=== PATIENT | female | born 1935 | race Caucasian/White ===

== ENCOUNTER → 2025-01-04 | Outpatient (CLI) | payer MEDICARE, BC, SELFPAY ==
[2025-01-04 11:09] LABS: Collection Type, Urine Clean Catch
[2025-01-04 11:53] LABS: Basophils # (Auto) 0.1 Thou/mm3 (0.0-0.2); Basophils % (Auto) 1 % (0-2.5); Eosinophils # (Auto) 0.2 Thou/mm3 (0.0-0.5); Eosinophils % (Auto) 3 % (0-10); Hemoglobin 12.5 g/dL (12.0-16.0); Immature Granulocytes % (Auto) 0 % (0-0); Immature Granulocytes Auto 0.02 Thou/mm3 (0.00-0.00); Lymphocytes # (Auto) 1.6 Thou/mm3 (1.0-4.8); Lymphocytes % (Auto) 23 % (10-50); Mean Corpuscular HGB Conc 32.9 g/dl (31.0-37.0); Mean Corpuscular Hemoglobin 33.2 pg (25.0-35.0); Mean Corpuscular Volume 101 fL (80-100); Monocytes # (Auto) 0.5 Thou/mm3 (0.0-0.8); Monocytes % (Auto) 7 % (0-12); Neutrophils # (Auto) 4.6 Thou/mm3 (1.8-7.7); Neutrophils % (Auto) 66 % (37-80); Nucleated Red Blood Cell % 0 /100 WBC (0); Platelet Count 257 Thou/mm3 (140-440); RDW Standard Deviation 48.2 fL (36.4-46.3); Red Blood Count 3.76 Miln/mm3 (4.00-5.20); White Blood Count 6.9 Thou/mm3 (3.6-11.0)
[2025-01-04 12:08] LABS: Alanine Aminotransferase 18 U/L (10-49); Albumin, Serum 4.2 gm/dL (3.4-4.8); Albumin/Globulin Ratio 1.5 (1.2-2.2); Alkaline Phosphatase 92 U/L (46-116); Anion Gap 10 (7-16); Aspartate Amino Transferase 23 U/L (0-34); BUN/Creatinine Ratio 16 Ratio (12-20); Bilirubin,Total 0.5 mg/dL (0.3-1.2); Blood Urea Nitrogen 16 mg/dL (9-23); Calcium 9.1 mg/dL (8.3-10.6); Calcium (Corrected) 9.1 mg/dL (8.5-10.1); Carbon Dioxide 27.1 mMol/L (20.0-31.0); Cardiac Risk Estimate 2.5 RATIO (3.7-5.6); Chloride 107 mMol/L (98-107); Cholesterol 137 mg/dL (132-200); Globulin 2.8 gm/dL (2.3-3.5); Glucose 106 mg/dL (74-106); HDL Cholesterol 54 mg/dL (40-60); LDL Cholesterol,Calculated 59 mg/dL (0-130); Osmolality,Calculated 288 (275-295); Potassium 4.1 mMol/L (3.4-5.1); Sodium 144 mMol/L (136-145); Triglycerides 118 mg/dL (30-150); Uric Acid 6.3 mg/dL (3.1-7.8); eGFR 54 See Note
[2025-01-04 12:20] LABS: Vitamin B12 621 pg/mL (211-911); Vitamin D 25 Hydroxy Total 35.8 ng/mL (7.3-40.2)
[2025-01-04 12:42] LABS: Glucose Estimated Average 114 mg/dL (80-131); Hemoglobin A1C 5.6 % Hgb (4.8-6.0)
[2025-01-04 13:30] LABS: Bilirubin,Urine Negative (Negative); Blood,Urine Negative (Negative); Clarity,Urine Clear (Clear/Hazy); Color,Urine Lt-Yellow (Lt Yel-Yel); Glucose, Urine Negative (Negative); Ketones,Urine Negative (Negative); Leukocyte Esterase,Urine Positive (Negative); Nitrite,Urine Negative (Negative); PH,Urine 5.5 (5.0-7.0); Protein,Urine Negative (Neg - Trace); RBC,Urine 1 /hpf (0-3); Specific Gravity,Urine 1.018 (1.001-1.035); Squamous Epithelial Cell,Urine 3 /hpf (0-5); Urobilinogen,Urine Negative mg/dL (0.0-1.0); WBC,Urine 3 /hpf (0-5)
== END | disposition home or self-care (01) ==
PROVIDERS: PCP Internal Medicine; Referring Provider Internal Medicine; Visit Provider Internal Medicine
DX: E78.5 Hyperlipidemia, unspecified (principal); I10 Essential (primary) hypertension; E03.9 Hypothyroidism, unspecified; D51.9 Vitamin B12 deficiency anemia, unspecified; E55.9 Vitamin D deficiency, unspecified
CPT/HCPCS: 36415; 80053; 80061; 81001; 82306; 82607; 83036; 84443; 84550; 85025

== ENCOUNTER 2025-02-09 11:49 | Emergency (ER) | payer MEDICARE, BC, SELFPAY ==
[2025-02-09 11:57] VITALS: BP 148/62; PULSE 75; RESP 18; TEMP 36.6; O2SAT 95; BMI 33.3
--- NOTE | 2025-02-09 12:01 | XR_ITS ---
Examination: CT cervical spine without contrast 2-D sagittal reconstructions 2-D coronal reconstructions 3-D reconstructions. Exam date and time:February 09, 2025 at 12:10 PM INDICATIONS: Patient fell today with injury to the neck, neck pain CTDI:vol (mGy) 8.14 DLP: (mGycm) 167 Technique: Multiple 2 mm axial sections of the cervical spine have been obtained. The coronal and sagittal reconstructions have been obtained. 3-D reconstructions have been obtained. Low dose protocols were performed. One or more of the following dose reduction techniques were used; automated exposure control, adjustment of the mA and/or KV according to patient size, use of iterative reconstruction technique. Findings: Axial sections demonstrate intact base of the skull. C1 exhibit satisfactory relationship to the odontoid. No acute cervical vertebral body fracture seen. Alignment posterior spinous processes satisfactory. Impression: No acute cervical fracture.
--- NOTE | 2025-02-09 12:01 | EKG_ITS ---
[facility] Test Date: 2025-02-09 Pat Name: IVETT BREWER Department: Room: - Gender: Female Filler Sifter Machine: : [id number] Requested By: Francesco Hutton Order Number: [id number] Reading MD: Francesco Hutton Measurements Intervals [place] Rate: 66 P: 36 OR: 157 QRS: -22 QRSD: 161 T: 133 QT: 425 QTc: 447 Interpretive Statements SINUS RHYTHM LEFT BUNDLE BRANCH BLOCK [120+ ms QRS DURATION, 80+ ms Q/S IN V1/V2, 85+ ms R IN I/aVL/V5/V6] Compared to ECG 01/07/2023 15:26:32 No significant changes /store/S0/[id number].pdf
--- NOTE | 2025-02-09 12:01 | XR_ITS ---
Examination: CT brain head without contrast. 2-D sagittal coronal reconstructions Date and time of exam:February 09, 2025 1210 hours Comparison January 07, 2023 INDICATIONS: Ground-level fall today with injury to the head, head pain CTDI: vol (mGy):46.9 DLP: (mGycm):939 Technique: Multiple CT axial sections of the brain have been obtained, 5 mm slice thickness. Contrast has not been administered. 2-D sagittal, coronal reconstructions have been obtained Low dose protocols were performed. One or more of the following dose reduction techniques were used; automated exposure control, adjustment of the mA and/or KV according to patient size, use of iterative reconstruction technique. Findings: No significant ventricular enlargement. Intra-axial or extra-axial hemorrhage density is not seen. No mass effect or midline shift Basal cisterns are not remarkable. Fourth ventricle is midline. Cranial vault intact. Impression: Negative for acute hemorrhage, mass effect or midline shift
--- NOTE | 2025-02-09 12:03 | PD.EDFALL ---
ED Fall Injury RME/HPI General Chief Complaint: Fall Stated Complaint: FALL HITTING R) JEHOVAH'S WITNESS, LAC Time Seen by Provider: 02/09/25 12:00 Source: patient Arrival date/time: 02/09/25 11:49 Mode of arrival: ambulatory Limitations: no limitations RME / HPI RME / HPI Narrative: 59-year-old female who states she has a chronically unbalanced gait and uses a walker for assistance. She was threshold of a doorway just prior to arrival when she had a mechanical fall and struck her right confucianism. She has a skin injury and bleeding. She denies any loss of conscious, nausea, vomiting. She has no vision changes. She denies any distal paresthesias or weakness. She has no other acute complaints. Related Data Home Medications ?Medication ?Instructions ?Recorded ?Confirmed aspirin 81 mg chewable tablet 81 mg PO QDAY ##0 12/13/16 01/08/23 lisinopril 20 mg tablet 40 mg PO BID #0 tabs 12/13/16 01/07/23 levothyroxine 25 mcg tablet 25 mcg PO QDAY 11/27/17 01/07/23 nitroglycerin 0.4 mg sublingual 0.4 mg buccal Q5MIN PRN Chest Pain 02/01/18 01/08/23 tablet amlodipine 5 mg tablet 5 mg PO BID 01/16/19 01/07/23 sertraline 50 mg tablet 100 mg PO HS 01/16/19 01/07/23 buspirone 15 mg tablet 15 mg PO QDAY 11/20/21 01/07/23 Previous Rx's ?Medication ?Instructions ?Recorded ticagrelor 90 mg tablet (Brilinta) 90 mg PO BID #60 tabs 11/20/21 atorvastatin 10 mg tablet 80 mg (8 x 10 mg) PO DAILY #30 tabs 01/08/23 Allergies Allergy/AdvReac Type Severity Reaction Status Date / Time Penicillins Allergy Mild Hives Verified 02/09/25 11:53 Sulfa (Sulfonamide Allergy Mild Hives Verified 02/09/25 11:53 Antibiotics) ciprofloxacin AdvReac Intermediate stomach Verified 02/09/25 11:53 upset and diarrhea Review of Systems Review of Systems Systems Reviewed: All systems reviewed, normal except as documented ED Exam General Limitations: Present no limitations General appearance: Present alert and in no apparent distress Head Head exam: Present atraumatic and other (No scalp depression. No hematotympanum. No Craft sign. There is mild purple discoloration and an open wound lateral to the right eye.) Eye Eye exam: Present normal appearance, PERRL and EOMI ENT ENT exam: Present normal exam, normal oropharynx and mucous membranes moist Neck Neck exam: Present normal inspection, full ROM and trachea midline Chest Chest inspection: Present normal inspection and symmetric chest wall rise Respiratory Respiratory exam: Present normal lung sounds bilaterally Cardiovascular Cardiovascular exam: Present regular rate, normal rhythm and normal heart sounds Abdominal Exam Abdominal exam: Present soft and normal bowel sounds Extremities Exam Extremities exam: Present normal inspection and full ROM Back Exam Back exam: Present normal inspection and full ROM Neurological Exam Neurological exam: Present alert, oriented X3 and CN II-XII intact Psychiatric Psychiatric exam: Present normal affect and normal mood Skin Skin exam: Present warm, dry, intact and normal color Course Quality Measures none Orders Category Date Time Status EKG (ED ONLY) *Do not use* NOW Care 02/09/25 12:[address] cervical spine wo con Stat Exams 02/09/25 12:[address] head/brain wo con Stat Exams 02/09/25 12:01 Completed EKG (ED Only) Stat Exams 02/09/25 12:01 Draft CBC Stat Lab 02/09/25 12:18 Completed CMP [Comprehensive Metabolic Panel] Stat Lab 02/09/25 12:18 Completed PT [Prothrombin Time with INR] Stat Lab 02/09/25 12:18 Completed Lidocaine 1% 20 ml [Xylocaine 1% 20 ML] Med 02/09/25 14:37 Discontinued 10 ml INFL X1 ONE Vital Signs Vital signs: Vital Signs Temperature 98 F 02/09/25 11:57 Pulse Rate 75 02/09/25 11:57 Respiratory Rate 18 02/09/25 11:57 Blood Pressure 148/62 H 02/09/25 11:57 Pulse Oximetry (%) 95 02/09/25 11:57 Oxygen Delivery Method Room Air 02/09/25 11:57 Procedures -ED Laceration There is a 2 cm laceration lateral to the right eye. This was infiltrated with 0.5 cc of 1% lidocaine. Wound was approximated with 2, 6-0, nylon sut: Site: face Size (cm): 2 Description: linear Depth: simple, single layer Local Anesthetic: lidocaine 1% Amount of anesthesia used (mL): 0.5 Pre-repair: wound explored Skin layer closed with: nylon Suture size (cm): 6-0 Number of sutures: 2 Fall MDM Narrative MDM Narrative:: 89-year-old female who arrived to the ER after she had a mechanical fall and struck her right side of her head. She denies any loss of conscious, nausea, or vomiting. She has no neck or back injury. Patient initially eval by me as she anterior the waiting room area. A neuroassessment was performed and appropriate tests were ordered at that time. Patient was brought back to a room where her vital signs were assessed, found to be reassuring, and patient was triaged into an appropriate room. Reviewed the patient's workup which is reassuring. Appropriate imaging test including CT of the head and neck were obtained reviewed by me, and then later radiology. There is no evidence of any acute fracture or intracranial pathology. Patient's daughter arrived at a later time. Patient and her daughter vocalized discontent with the service time in our emergency room. This was relayed multiple times to various staff including techs and nursing staff. I did spend significant mount of time de-escalating the situation when I performed suture repair. Total time spent in the emergency room was less than 3 hours from time of check-in to when her discharge was initiated. Patient was advised to follow-up with her primary doctor in 5 to 6 days for wound recheck and suture removal. Patient was invited to return anytime for any neurologic changes or any concerns regarding wound infection. Patient data External records reviewed:: Other (specify) Clinical information provided by:: patient Social determinants that could affect healthcare access:: none Patient has the following chronic illnesses:: Hypertension hypothyroidism How is presenting disease/condition affected by chronic disease/condition?: exacerbated by Evaluation data The following diagnostics were reviewed and interpreted by me:: lab results (Unremarkable for any acute changes), radiology exam(s) (No acute intracranial pathology, no osseous injury) and EKG tracing(s) (EKG obtained today at 12:23 PM reveals normal sinus rhythm at 66 bpm. Left bundle branch present, there are no ST changes or dynamic T waves.) Lab and/or radiology exams considered but not ordered:: n/a Interpretation Summary: No leukocytosis or significant anemia. Cardiac workup was not remarkable. CT of the head and neck revealed no acute pathology Medications / Prescriptions Medications or Prescriptions considered but not ordered:: n/a Medication administrations:: Medication Administration History Discontinued Medications Lidocaine HCl (Lidocaine Hcl 1% 20 Ml Vial) 10 ml INFL X1 ONE Stop: 02/09/25 14:38 Last Admin: 02/09/25 14:52 Dose: 10 ml Documented By: ALICE Comments: USED BY PROVIDER see above Consultations Consultation(s) initiated? (list below): No Diagnosis Fall Differential Diagnosis: syncope and compression fracture Most likely diagnosis given after review of the tests above:: Facial laceration Admission Indicated Admission indicated?: not indicated Admission Request Was there a request for admission?: No Disposition Plan Disposition Plan: Discharge Discharge Attestation Discharge Attestation: The patient and all family members were given an opportunity to ask questions and understood the discharge instructions. Discharge instructions specifically effects, indications for sooner follow up or return to the emergency department, and the expected course of current diagnosis. Patient condition: Stable Discharge Plan Plan Patient Disposition: Home w/HOME HEALTH Patient condition on transfer: Stable Prescriptions/Referrals Prescriptions/Med Rec: No Action lisinopril 20 MG tablet 40 mg PO BID Qty: 0 aspirin 81 MG tablet,chewable 81 mg PO QDAY Qty: 0 buspirone 15 mg Tablet 15 mg PO QDAY Brilinta 90 mg Tablet 90 mg PO BID Qty: 60 0RF levothyroxine 25 mcg Tablet 25 mcg PO QDAY nitroglycerin 0.4 mg Tablet, Sublingual 0.4 mg buccal Q5MIN PRN (Reason: Chest Pain) amlodipine 5 mg Tablet 5 mg PO BID sertraline 50 mg Tablet 100 mg PO HS atorvastatin 10 mg Tablet 80 mg PO DAILY Qty: 30 0RF Referrals: Veronica Decker MD [Primary Care Provider] - In 1 week Problem List Clinical Impression: Facial laceration Patient/Caregiver Discharge Instructions Education Materials: ED Laceration, Chin, Suture or Tape Additional Instructions: - Use Tylenol for comfort. - Continue wound care at home. - Please follow-up with your clinic in 5 to 6 days for wound recheck and to consider suture removal. - Return to the emergency room at anytime for any emergent concerns including signs of infection or any neurologic changes. Print Language: Icelandic Stand Alone Forms: Nora Award Info., Patient Portal Info Letter
[2025-02-09 12:42] LABS: Basophils # (Auto) 0.1 Thou/mm3 (0.0-0.2); Basophils % (Auto) 1 % (0-2.5); Eosinophils # (Auto) 0.2 Thou/mm3 (0.0-0.5); Eosinophils % (Auto) 2 % (0-10); Hematocrit 35.8 % (36.0-46.0); Hemoglobin 12.1 g/dL (12.0-16.0); Immature Granulocytes % (Auto) 0 % (0-0); Immature Granulocytes Auto 0.01 Thou/mm3 (0.00-0.00); Lymphocytes # (Auto) 1.7 Thou/mm3 (1.0-4.8); Lymphocytes % (Auto) 22 % (10-50); Mean Corpuscular HGB Conc 33.8 g/dl (31.0-37.0); Mean Corpuscular Hemoglobin 33.2 pg (25.0-35.0); Mean Corpuscular Volume 98 fL (80-100); Monocytes # (Auto) 0.6 Thou/mm3 (0.0-0.8); Monocytes % (Auto) 8 % (0-12); Neutrophils # (Auto) 5.1 Thou/mm3 (1.8-7.7); Neutrophils % (Auto) 68 % (37-80); Nucleated Red Blood Cell % 0 /100 WBC (0); Platelet Count 240 Thou/mm3 (140-440); RDW Standard Deviation 46.8 fL (36.4-46.3); Red Blood Count 3.64 Miln/mm3 (4.00-5.20); White Blood Count 7.6 Thou/mm3 (3.6-11.0)
[2025-02-09 13:00] LABS: Prothrombin Time 10.7 Seconds (9.0-12.2)
[2025-02-09 13:03] LABS: Alanine Aminotransferase 17 U/L (10-49); Albumin, Serum 4.3 gm/dL (3.4-4.8); Albumin/Globulin Ratio 1.7 (1.2-2.2); Alkaline Phosphatase 81 U/L (46-116); Anion Gap 11 (7-16); Aspartate Amino Transferase 26 U/L (0-34); BUN/Creatinine Ratio 13 Ratio (12-20); Bilirubin,Total 0.6 mg/dL (0.3-1.2); Blood Urea Nitrogen 16 mg/dL (9-23); Calcium 9.3 mg/dL (8.3-10.6); Calcium (Corrected) 9.3 mg/dL (8.5-10.1); Carbon Dioxide 22.4 mMol/L (20.0-31.0); Chloride 108 mMol/L (98-107); Creatinine (Component) 1.2 mg/dL (0.6-1.3); Estimated Creatinine Clearance 28.6 mL/min (>60); Globulin 2.6 gm/dL (2.3-3.5); Glucose 106 mg/dL (74-106); Osmolality,Calculated 282 (275-295); Potassium 4.2 mMol/L (3.4-5.1); Sodium 141 mMol/L (136-145); Total Protein 6.9 gm/dL (5.7-8.2); eGFR 44 See Note
[2025-02-09] MEDS: LIDOCAINE HCL 1% 20 ML VIAL 10 ML INFL (14:52)
[2025-02-09 14:56] VITALS: BP 120/68; PULSE 77; RESP 18; TEMP 36.6; O2SAT 97
== END 2025-02-09 14:57 | disposition home health service (06) ==
PROVIDERS: Physician Assistant Medical; Emergency Provider Family Medicine; PCP Internal Medicine
DX: S01.81XA Laceration without foreign body of other part of head, initial encounter (principal); W18.30XA Fall on same level, unspecified, initial encounter; S19.9XXA Unspecified injury of neck, initial encounter; I44.7 Left bundle-branch block, unspecified
CPT/HCPCS: 12011; 36415; 70450; 72125; 80053; 85025; 85610; 93005; 99284; J3490

== ENCOUNTER 2025-06-27 17:37 | Emergency (ER) | payer MEDICARE, BC, SELFPAY ==
[2025-06-27 17:41] VITALS: BP 176/64; PULSE 62; PULSE 63; RESP 18; TEMP 36.6; O2SAT 96; O2SAT 99
[2025-06-27 17:45] VITALS: BMI 55.3
--- NOTE | 2025-06-27 18:24 | XR_ITS ---
Examination: CT brain head without contrast. 2-D sagittal coronal reconstructions Date and time of exam: June 27, 2025, 1909 hours, comparison February 09, 2025 INDICATIONS: Patient fell yesterday with injury to the head, head pain CTDI: vol (mGy): 50.4 DLP: (mGycm): 953 Technique: Multiple CT axial sections of the brain have been obtained, 5 mm slice thickness. Contrast has not been administered. 2-D sagittal, coronal reconstructions have been obtained Low dose protocols were performed. One or more of the following dose reduction techniques were used; automated exposure control, adjustment of the mA and/or KV according to patient size, use of iterative reconstruction technique. Findings: No significant ventricular enlargement. Mild frontal scalp swelling Intra-axial or extra-axial hemorrhage density is not seen. No mass effect or midline shift Basal cisterns are not remarkable. Fourth ventricle is midline. Cranial vault intact. Impression: Negative for acute hemorrhage, mass effect or midline shift
--- NOTE | 2025-06-27 18:26 | PD.EDADULT ---
ED General RME/HPI General Chief complaint: Altered Mental Status Stated complaint: AMS Time Seen by Provider: 06/27/25 18:18 Arrival date/time: 06/27/25 17:37 CC: Reported increased confusion HPI patient presents to the ER via EMS report stable vital signs EMS were contacted by the daughter who states this patient has increased confusion. The patient is awake alert oriented times to person and place and admits that she is mildly confused but not any more than she usually is. Patient denies fever chills chest pain shortness of breath or difficulty breathing no other complaints. Related Data Home Medications ?Medication ?Instructions ?Recorded ?Confirmed aspirin 81 mg chewable tablet 81 mg PO QDAY ##0 12/13/16 01/08/23 lisinopril 20 mg tablet 40 mg PO BID #0 tabs 12/13/16 01/07/23 levothyroxine 25 mcg tablet 25 mcg PO QDAY 11/27/17 01/07/23 nitroglycerin 0.4 mg sublingual 0.4 mg buccal Q5MIN PRN Chest Pain 02/01/18 01/08/23 tablet amlodipine 5 mg tablet 5 mg PO BID 01/16/19 01/07/23 sertraline 50 mg tablet 100 mg PO HS 01/16/19 01/07/23 buspirone 15 mg tablet 15 mg PO QDAY 11/20/21 01/07/23 Previous Rx's ?Medication ?Instructions ?Recorded ticagrelor 90 mg tablet (Brilinta) 90 mg PO BID #60 tabs 11/20/21 atorvastatin 10 mg tablet 80 mg (8 x 10 mg) PO DAILY #30 tabs 01/08/23 Allergies Allergy/AdvReac Type Severity Reaction Status Date / Time Penicillins Allergy Mild Hives Verified 02/09/25 11:53 Sulfa (Sulfonamide Allergy Mild Hives Verified 02/09/25 11:53 Antibiotics) ciprofloxacin AdvReac Intermediate stomach Verified 02/09/25 11:53 upset and diarrhea Review of Systems Review of Systems Narrative Review of Systems: GEN: No fever, no chills, no weight loss EYES: No discharge, no visual changes, no pain HEENT: No ear pain, no congestion, no sore throat PULM: No shortness of breath, no cough, no congestion CV: No chest pain, no dyspnea on exertion, no palpitations GI: No nausea, no vomiting, no diarrhea, no pain, no constipation : No frequency, no urgency, no dysuria MUSC/SKEL: No joint pain, no back pain SKIN: No rash PSYCH: No hallucinations, no depression HEME/LYMPH: No easy bleeding or bruising tendencies NEURO: No weakness, no headache Past Medical History Past Medical History NEUROLOGIC: Positive Dementia; Negative Neurological Disorders or Seizures CARDIAC: Positive Cardiac Disorders, Myocardial Infarction, Heart Murmur, Coronary Artery Disease, Hypercholesterolemia, Valvular Heart Disease and Hypertension; Negative Congestive Heart Failure RESPIRATORY: Positive Bronchitis and Pneumonia; Negative Chronic Obstructive Pulmonary Disease (COPD) or Asthma GASTROINTESTINAL: Positive Gastrointestinal Disorders, Hiatal Hernia and Hemorrhoids; Negative Gastrointestinal Bleed GENITOURINARY: Negative Genitourinary Disorders or Renal Disease REPRODUCTIVE: Positive Previous Pregnancies MUSCULOSKELETAL: Positive Musculoskeletal Disorders, Arthritis, Osteoporosis, Degenerative Disk Disease and Carpal Tunnel Syndrome ENT: Positive Cataracts ENDOCRINE: Positive Endocrine Disorders and Hypothyroidism; Negative Diabetes Mellitus Type 1 or Diabetes Mellitus Type 2 HEMATOLOGIC: Negative Blood Disorders or Sickle Cell Disease PSYCHO/SOCIAL: Positive Depression and Anxiety OTHER HISTORY: Positive Hospitalization, Chicken Pox, Measles, Mumps and Rubella (Swedish Measles); Negative Autoimmune Disease, Blood Transfusions, Blood Transfusion Reaction or Anesthesia Reactions Family History FAMILY HISTORY: Positive Family Respiratory Disorders and Family Cardiac Disorders; Negative Family Cancer, Family Surgery or Family Anesthesia Reaction Surgical History SURGICAL: Positive Cardiac Surgery, Valve Replacement, Coronary Stent, Cardiac Catheterization, Angiogram, Ear Surgery, Abdominal Surgery and Tubal Ligation Social History SMOKING STATUS: Former smoker ED Exam Narrative Physical exam: [General: Frail deconditioned but not in any acute distress Head normocephalic large laceration repaired to the right forehead. Bilateral forehead ecchymosis and very stages of resolution. HEENT: Eyes: Pupils are PERRLA EOMs are intact mouth pink moist membranes uvula is midline swallow symmetrical all the subsystems of HEENT are within acceptable limits Neck is supple nontender Chest equal chest rise nontender to palpation Respiratory: Clear to auscultation no wheezes crackles or rubs CV: Rate rhythm is regular no murmurs rubs or clicks Abdomen is soft nontender no masses positive bowel sounds all 4 quadrants Back: No CVA tenderness no spinous process tenderness from cervical spine thoracic and lumbar spine Skin: Skin tears and abrasions to both arms, laceration to the right forehead. Otherwise skin is intact no petechiae rash induration ulceration or crepitus Extremities: Moving all extremity against resistance cap refill less than 2 seconds neurosensory intact Neuro: Awake alert oriented x3 Glascow coma 15 no focal deficits] Course Course Course Narrative: Reassessment of this patient at 2029, the patient has no increased confusion at this time there is no acute finding requires emergent or immediate intervention. Patient will be discharged home. Quality Measures none Orders Category Date Time Status EKG (ED ONLY) *Do not use* NOW Care 06/27/25 18:[address] head/brain wo con Stat Exams 06/27/25 18:24 Completed EKG (ED Only) Stat Exams 06/27/25 18:28 Draft CBC Stat Lab 06/27/25 18:55 Completed CMP [Comprehensive Metabolic Panel] Stat Lab 06/27/25 18:55 Completed Drug Screen,Urine Stat Lab 06/27/25 19:34 Completed Free T4 (Free Thyroxine) Stat Lab 06/27/25 18:55 Completed TSH [Thyroid Stimulating Hormone] Stat Lab 06/27/25 18:55 Completed Urinalysis Stat Lab 06/27/25 19:34 Completed Vital Signs Vital signs: Vital Signs Temperature 97.9 F 06/27/25 17:41 Pulse Rate 62 06/27/25 17:41 Respiratory Rate 18 06/27/25 17:41 Blood Pressure 176/64 H 06/27/25 17:41 Pulse Oximetry (%) 96 06/27/25 17:41 Oxygen Delivery Method Room Air 06/27/25 17:41 Discharge Plan Plan Patient Disposition: HOME (Self Care) Patient condition on transfer: Stable Prescriptions/Referrals Prescriptions/Med Rec: No Action lisinopril 20 MG tablet 40 mg PO BID Qty: 0 aspirin 81 MG tablet,chewable 81 mg PO QDAY Qty: 0 buspirone 15 mg Tablet 15 mg PO QDAY Brilinta 90 mg Tablet 90 mg PO BID Qty: 60 0RF levothyroxine 25 mcg Tablet 25 mcg PO QDAY nitroglycerin 0.4 mg Tablet, Sublingual 0.4 mg buccal Q5MIN PRN (Reason: Chest Pain) amlodipine 5 mg Tablet 5 mg PO BID sertraline 50 mg Tablet 100 mg PO HS atorvastatin 10 mg Tablet 80 mg PO DAILY Qty: 30 0RF Referrals: Veronica Decker MD [Primary Care Provider, Nephrology] - In 1 week Problem List Clinical Impression: Confusion Patient/Caregiver Discharge Instructions Other Activity Instructions:: There is no acute findings physiologically that indicate any infection or abnormality otherwise. Patient is to follow-up with primary care provider for further workup. Education Materials: ED Confusion Print Language: Hungarian Stand Alone Forms: Nora Award Info., Patient Portal Info Letter PA/WOUND CARE CENTER CONSULTANT Supervising Physician PA/WOUND CARE CENTER CONSULTANT Supervising Physician: Blayne BORJA Clinical Information Provided by: patient and EMS Medical Records reviewed [facility] and EMS Meds/Rx considered, not ordered None Labs/Rad/Tests considered, not ordered None Chronic Illness/Social Conditions Explain: CVA hypertension hyperlipidemia EKG Interpretation EKG #1: EKG Interpretation: EKG performed at 1834 shows a ventricular rate of 5 8 TX interval 167 QRS of 168 QTc shows 433 this is sinus bradycardia with a left bundle branch block. When compared to the EKG of February 09, 2025 there are no significant changes. Labs Labs: interpreted by me
--- NOTE | 2025-06-27 18:28 | EKG_ITS ---
[facility] Test Date: 2025-06-27 Pat Name: IVETT BREWER Department: Room: - Gender: Female Client Success Manager: : [id number] Requested By: Blayne Grady Order Number: [id number] Reading MD: Blayne Grady Measurements Intervals [place] Rate: 58 P: 45 [place]: 167 QRS: -20 QRSD: 168 T: 142 QT: 447 QTc: 440 Interpretive Statements SINUS BRADYCARDIA LEFT BUNDLE BRANCH BLOCK [120+ ms QRS DURATION, 80+ ms Q/S IN V1/V2, 85+ ms R IN I/aVL/V5/V6] Compared to ECG 02/09/2025 12:23:02 Sinus rhythm no longer present /store/S0/[id number]
[2025-06-27 19:08] LABS: Basophils # (Auto) 0.0 Thou/mm3 (0.0-0.2); Basophils % (Auto) 1 % (0-2.5); Eosinophils # (Auto) 0.1 Thou/mm3 (0.0-0.5); Eosinophils % (Auto) 2 % (0-10); Hematocrit 36.0 % (36.0-46.0); Hemoglobin 11.8 g/dL (12.0-16.0); Immature Granulocytes Auto 0.02 Thou/mm3 (0.00-0.00); Lymphocytes # (Auto) 1.8 Thou/mm3 (1.0-4.8); Lymphocytes % (Auto) 26 % (10-50); Mean Corpuscular HGB Conc 32.8 g/dl (31.0-37.0); Mean Corpuscular Hemoglobin 33.5 pg (25.0-35.0); Mean Corpuscular Volume 102 fL (80-100); Monocytes # (Auto) 0.6 Thou/mm3 (0.0-0.8); Monocytes % (Auto) 9 % (0-12); Neutrophils # (Auto) 4.4 Thou/mm3 (1.8-7.7); Neutrophils % (Auto) 62 % (37-80); Nucleated Red Blood Cell # 0.00 Thou/mm3 (0.00-0.00); Nucleated Red Blood Cell % 0 /100 WBC (0); Platelet Count 243 Thou/mm3 (140-440); RDW Standard Deviation 47.0 fL (36.4-46.3); Red Blood Count 3.52 Miln/mm3 (4.00-5.20); White Blood Count 7.0 Thou/mm3 (3.6-11.0)
[2025-06-27 19:26] LABS: Alanine Aminotransferase 18 U/L (10-49); Albumin, Serum 4.4 gm/dL (3.4-4.8); Albumin/Globulin Ratio 1.8 (1.2-2.2); Alkaline Phosphatase 83 U/L (46-116); Anion Gap 9 (7-16); Aspartate Amino Transferase 28 U/L (0-34); BUN/Creatinine Ratio 24 Ratio (12-20); Bilirubin,Total 0.4 mg/dL (0.3-1.2); Blood Urea Nitrogen 26 mg/dL (9-23); Calcium 9.9 mg/dL (8.3-10.6); Calcium (Corrected) 9.9 mg/dL (8.5-10.1); Carbon Dioxide 26.8 mMol/L (20.0-31.0); Chloride 106 mMol/L (98-107); Creatinine (Component) 1.1 mg/dL (0.6-1.3); Estimated Creatinine Clearance 47.4 mL/min (>60); Globulin 2.5 gm/dL (2.3-3.5); Glucose 85 mg/dL (74-106); Osmolality,Calculated 286 (275-295); Potassium 4.0 mMol/L (3.4-5.1); Sodium 142 mMol/L (136-145); Total Protein 6.9 gm/dL (5.7-8.2); eGFR 48 See Note
[2025-06-27 19:38] LABS: Collection Type, Urine Clean Catch
[2025-06-27 19:47] LABS: Bilirubin,Urine Negative (Negative); Blood,Urine Negative (Negative); Clarity,Urine Clear (Clear/Hazy); Color,Urine Lt-Yellow (Lt Yel-Yel); Glucose, Urine Negative (Negative); Ketones,Urine Negative (Negative); Leukocyte Esterase,Urine Positive (Negative); Nitrite,Urine Negative (Negative); PH,Urine 6.0 (5.0-7.0); Protein,Urine Negative (Neg - Trace); RBC,Urine 2 /hpf (0-3); Specific Gravity,Urine 1.012 (1.001-1.035); Squamous Epithelial Cell,Urine 7 /hpf (0-5); Urobilinogen,Urine Negative mg/dL (0.0-1.0); WBC,Urine 25 /hpf (0-5)
[2025-06-27 19:51] VITALS: BP 169/95; PULSE 65; RESP 19; TEMP 37; O2SAT 97
[2025-06-27 19:53] LABS: Amphetamine/Methamp Scrn,U Negative (Negative); Barbiturate Screen,Urine Negative (Negative); Benzodiazepines Screen,Urine Negative (Negative); Benzoylecgonine Screen, Ur Negative (Negative); Fentanyl Screen,Urine Negative (Negative); Opiate Screen,Urine Negative (Negative); THC Screen,Urine Negative (Negative)
[2025-06-27 20:29] LABS: Free T4 (Free Thyroxine) 1.16 ng/dL (0.89-1.76); Thyroid Stimulating Hormone 1.12 uIU/mL (0.55-4.78)
--- NOTE | 2025-06-27 20:44 | PC.NURSE ---
PT DAUGHTER STATED SHE HAS HER BROTHER COMING TO PICK PT UP FROM [place], CHARGE NURSE OK WITH PRODUCTION SUPERVISOR OFF SHIFT
[2025-06-27 21:47] VITALS: BP 156/88; PULSE 65; RESP 16; TEMP 36.9; O2SAT 95
== END 2025-06-27 21:49 | disposition home or self-care (01) ==
PROVIDERS: Registered Nurse General Practice; Emergency Provider Emergency Medicine; PCP Internal Medicine
DX: R41.0 Disorientation, unspecified (principal); E78.5 Hyperlipidemia, unspecified; I10 Essential (primary) hypertension; I44.7 Left bundle-branch block, unspecified; Z95.5 Presence of coronary angioplasty implant and graft
CPT/HCPCS: 36415; 70450; 80053; 80307; 81001; 84439; 84443; 84481; 85025; 93005; 99283

== ENCOUNTER 2025-07-20 06:02 | Emergency (ER) | payer MEDICARE, BC, SELFPAY ==
[2025-07-20 06:16] VITALS: BP 178/63; PULSE 64; RESP 25; TEMP 36.8; O2SAT 95
--- NOTE | 2025-07-20 06:18 | XR_ITS ---
Examination: CT cervical spine without contrast 2-D sagittal reconstructions 2-D coronal reconstructions 3-D reconstructions. Exam date and time: July 20, 2025, 0641 hours, comparison February 09, 2025 INDICATIONS: Patient fell today with injury to the neck, neck pain CTDI:vol (mGy) 14.8 DLP: (mGycm) 306 Technique: Multiple 2 mm axial sections of the cervical spine have been obtained. The coronal and sagittal reconstructions have been obtained. 3-D reconstructions have been obtained. Low dose protocols were performed. One or more of the following dose reduction techniques were used; automated exposure control, adjustment of the mA and/or KV according to patient size, use of iterative reconstruction technique. Findings: Axial sections demonstrate intact base of the skull. C1 exhibit satisfactory relationship to the odontoid. No acute cervical vertebral body fracture seen. Alignment posterior spinous processes satisfactory. Advanced degenerative disc disease C5-C6 C6-C7 Impression: No acute cervical fracture. Significant soft tissue carotid calcification, consider elective correlation with carotid Doppler sonography follow-up
--- NOTE | 2025-07-20 06:20 | XR_ITS ---
EXAMINATION: AP pelvis single view TECHNIQUE: AP portable supine pelvis single view Date and time: July 20, 2025, 0643 hours INDICATIONS: Patient fell today with injury to the pelvis, pelvic pain. FINDINGS: Severe osteopenia No acute fracture or dislocation Bones of the pelvis intact Mild narrowing hip joints IMPRESSION: No acute hip or pelvic fracture
--- NOTE | 2025-07-20 06:23 | PD.EDFALL ---
ED Fall Injury RME/HPI General Chief Complaint: Fall Stated Complaint: WEAKNESS Time Seen by Provider: 07/20/25 06:20 Source: patient Arrival date/time: 07/20/25 06:02 Mode of arrival: EMS Limitations: no limitations [facility] / DEDE CONSTANTINO complaint: fall RME / HPI Narrative: Patient is in the ED after having had a fall at home. Patient lives with multiple caregivers, she was on her way to the bathroom and fell. Patient was found soiled, with feces on the carpet. Patient was able to ambulate with assistance. Denies any chest pain palpitations abdominal pain head pain, neck pain, hip pain, pain in her upper extremities and lower extremities. Patient is concerned that she has felt weak recently. Patient is allergic to sulfa and penicillins as well as Cipro. Related Data Home Medications ?Medication ?Instructions ?Recorded ?Confirmed aspirin 81 mg chewable tablet 81 mg PO QDAY ##0 12/13/16 01/08/23 lisinopril 20 mg tablet 40 mg PO BID #0 tabs 12/13/16 01/07/23 levothyroxine 25 mcg tablet 25 mcg PO QDAY 11/27/17 01/07/23 nitroglycerin 0.4 mg sublingual 0.4 mg buccal Q5MIN PRN Chest Pain 02/01/18 01/08/23 tablet amlodipine 5 mg tablet 5 mg PO BID 01/16/19 01/07/23 sertraline 50 mg tablet 100 mg PO HS 01/16/19 01/07/23 buspirone 15 mg tablet 15 mg PO QDAY 11/20/21 01/07/23 Previous Rx's ?Medication ?Instructions ?Recorded ticagrelor 90 mg tablet (Brilinta) 90 mg PO BID #60 tabs 11/20/21 atorvastatin 10 mg tablet 80 mg (8 x 10 mg) PO DAILY #30 tabs 01/08/23 Allergies Allergy/AdvReac Type Severity Reaction Status Date / Time Penicillins Allergy Mild Hives Verified 07/20/25 07:18 Sulfa (Sulfonamide Allergy Mild Hives Verified 07/20/25 07:18 Antibiotics) ciprofloxacin AdvReac Intermediate stomach Verified 07/20/25 07:18 upset and diarrhea Review of Systems Review of Systems Systems Reviewed: All systems reviewed, normal except as documented Past Medical History Past Medical History NEUROLOGIC: Positive Dementia CARDIAC: Positive Cardiac Disorders, Myocardial Infarction, Heart Murmur, Coronary Artery Disease, Hypercholesterolemia, Valvular Heart Disease and Hypertension RESPIRATORY: Positive Bronchitis and Pneumonia GASTROINTESTINAL: Positive Gastrointestinal Disorders, Hiatal Hernia and Hemorrhoids REPRODUCTIVE: Positive Previous Pregnancies MUSCULOSKELETAL: Positive Musculoskeletal Disorders, Arthritis, Osteoporosis, Degenerative Disk Disease and Carpal Tunnel Syndrome ENT: Positive Cataracts ENDOCRINE: Positive Endocrine Disorders and Hypothyroidism PSYCHO/SOCIAL: Positive Depression and Anxiety OTHER HISTORY: Positive Hospitalization, Chicken Pox, Measles, Mumps and Rubella ([place]ai[place]ese Measles) Family History FAMILY HISTORY: Positive Family Respiratory Disorders and Family Cardiac Disorders Surgical History SURGICAL: Positive Cardiac Surgery, Valve Replacement, Coronary Stent, Cardiac Catheterization, Angiogram, Ear Surgery, Abdominal Surgery and Tubal Ligation Social History SMOKING STATUS: Never smoker ED Exam General Limitations: Present no limitations Head Head exam: Present atraumatic and normocephalic Eye Eye exam: Present normal appearance and PERRL ENT ENT exam: Present normal exam and normal oropharynx Neck Neck exam: Present normal inspection and full ROM; Absent tenderness Chest Chest inspection: Present normal inspection and symmetric chest wall rise; Absent tenderness Respiratory Respiratory exam: Present normal lung sounds bilaterally; Absent respiratory distress Cardiovascular Cardiovascular exam: Present regular rate and normal rhythm Abdominal Exam Abdominal exam: Present soft; Absent distention, tenderness or guarding Rectal Exam Rectal exam: Present normal inspection External exam: Present normal external exam Extremities Exam Extremities exam: Present normal inspection, full ROM and normal capillary refill; Absent tenderness, pedal edema or joint swelling Back Exam Back exam: Present normal inspection Neurological Exam Neurological exam: Present alert and other Psychiatric Psychiatric exam: Present normal affect and normal mood Skin Skin exam: Present warm, dry and intact Course Quality Measures none Orders Category Date Time Status CT Screening NOW Care 07/20/25 06:18 Active EKG (ED ONLY) *Do not use* NOW Care 07/20/25 06:36 Completed In and Out Catheter X1 Care 07/20/25 08:[address] cervical spine wo con Stat Exams 07/20/25 06:[address] head/brain wo con Stat Exams 07/20/25 06:28 Completed EKG (ED Only) Stat Exams 07/20/25 06:36 Ordered XR pelvis 1-2V Stat Exams 07/20/25 06:20 Completed BNP [B-Type Natriuretic Peptide] Stat Lab 07/20/25 07:13 Completed CBC Stat Lab 07/20/25 07:13 Completed CMP [Comprehensive Metabolic Panel] Stat Lab 07/20/25 07:13 Completed INR [Prothrombin Time with INR] Stat Lab 07/20/25 07:32 Completed Troponin I Stat Lab 07/20/25 07:13 Completed UA, C/S IF [Urinalysis, C/S if Indicated] Stat Lab 07/20/25 08:36 Completed Vital Signs Vital signs: Vital Signs Temperature 98.2 F 07/20/25 06:16 Pulse Rate 64 07/20/25 06:16 Respiratory Rate 25 H 07/20/25 06:16 Blood Pressure 178/63 H 07/20/25 06:16 Pulse Oximetry (%) 95 07/20/25 06:16 Oxygen Delivery Method Room Air 07/20/25 06:16 Pulse ox is 95% on room air which is adequate. Fall MDM Narrative MDM Narrative:: Shantell Suarez, viviana scribing for and in the presence of Dr. Pitts. Patient is an 89-year-old female with medical history notable for hypertension, hypothyroidism, send emergency department after having had a ground-level fall. Vital signs and exam as listed. Concern for intracranial injury, cervical spine injury, pelvic injury. Patient has bruises at various stages of healing on her body, concern that patient is falling multiple times in our facility will contact our facility for further information. Ordered CT brain, cervical spine as well as x-ray of the pelvis, labs. CT brain, cervical spine without any acute abnormalities. Pelvic x-ray unremarkable. Patient with a troponin of 0.163, EKG performed today at 655, interpreted by me. Notable for sinus rhythm heart rate 64, normal intervals, nonspecific T wave changes, not a cardiac alert patient does have a left bundle branch block. Patient without any significant metabolic disturbance, no significant acute hematologic abnormality. 8:45a I spoke with patients sandy Wu. Stephania the patient is on hospice. She will speak amongst siblings to figure out what they want to do. The main goal for the patient is to be comfortable. State she will call back once they have decided whether to continue medical management or return home with hospice. 9:18a Patients daughter Jazmin states she has spoken with siblings. Family confirmed the goal is hospice with no further medical intervention requested at this time. They are requesting the patient to be transported back home to [facility] with hospice. Patient will be discharged she is hemodynamically stable not in distress Patient data External records reviewed:: [facility] previous records and EMS form Clinical information provided by:: patient and EMS Social determinants that could affect healthcare access:: none Patient has the following chronic illnesses:: Dementia, CAD, hypertension, hyperlipidemia, hypothyroidism How is presenting disease/condition affected by chronic disease/condition?: exacerbated by Evaluation data The following diagnostics were reviewed and interpreted by me:: lab results and radiology exam(s) Lab and/or radiology exams considered but not ordered:: None Interpretation Summary: See MDM Medications / Prescriptions Medications or Prescriptions considered but not ordered:: None Medication administrations:: See above Consultations Consultation(s) initiated? (list below): No Diagnosis Fall Differential Diagnosis: syncope Most likely diagnosis given after review of the tests above:: Fall, elevated troponin Admission Indicated Admission indicated?: not indicated (Patient is hospice, family's goals of care are to not have any further medical intervention or assessment) Admission Request Was there a request for admission?: No Disposition Plan Disposition Plan: Discharge Discharge Attestation Discharge Attestation: The patient and all family members were given an opportunity to ask questions and understood the discharge instructions. Discharge instructions specifically effects, indications for sooner follow up or return to the emergency department, and the expected course of current diagnosis. Patient condition: Stable Discharge Plan Plan Patient Disposition: Xfer Skilled Nsg Fac (SNF) Prescriptions/Referrals Prescriptions/Med Rec: No Action lisinopril 20 MG tablet 40 mg PO BID Qty: 0 aspirin 81 MG tablet,chewable 81 mg PO QDAY Qty: 0 buspirone 15 mg Tablet 15 mg PO QDAY Brilinta 90 mg Tablet 90 mg PO BID Qty: 60 0RF levothyroxine 25 mcg Tablet 25 mcg PO QDAY nitroglycerin 0.4 mg Tablet, Sublingual 0.4 mg buccal Q5MIN PRN (Reason: Chest Pain) amlodipine 5 mg Tablet 5 mg PO BID sertraline 50 mg Tablet 100 mg PO HS atorvastatin 10 mg Tablet 80 mg PO DAILY Qty: 30 0RF Referrals: Veronica Decker MD [Primary Care Provider, Nephrology] - In 1 week Problem List Clinical Impression: Fall, Elevated troponin Patient/Caregiver Discharge Instructions Education Materials: ED Fall with Uncertain Cause Additional Instructions: At the point that use your walker every time you are going to ambulate. I recommend that you use disposable briefs in the evening time in the event that you have to go to the bathroom to avoid getting up when a caregiver is not around to help. Please follow-up with your primary care doctor within 1 to 2 days Print Language: Luxembourgish Stand Alone Forms: [facility]ora Award Info., Patient Portal Info Letter
--- NOTE | 2025-07-20 06:28 | XR_ITS ---
Examination: CT brain head without contrast. 2-D sagittal coronal reconstructions Date and time of exam: July 20, 2025,, 0641 hours INDICATIONS: Ground-level fall today with hematoma in the right forehead head pain CTDI: vol (mGy): 48.9 DLP: (mGycm): 959 Technique: Multiple CT axial sections of the brain have been obtained, 5 mm slice thickness. Contrast has not been administered. 2-D sagittal, coronal reconstructions have been obtained Low dose protocols were performed. One or more of the following dose reduction techniques were used; automated exposure control, adjustment of the mA and/or KV according to patient size, use of iterative reconstruction technique. Findings: No significant ventricular enlargement. Intra-axial or extra-axial hemorrhage density is not seen. No mass effect or midline shift Basal cisterns are not remarkable. Fourth ventricle is midline. Cranial vault intact. Soft tissue forehead swelling Impression: Negative for acute hemorrhage, mass effect or midline shift
[2025-07-20 07:07] VITALS: BP 167/53; PULSE 67; RESP 22; TEMP 37.2; O2SAT 94
--- NOTE | 2025-07-20 07:14 | PC.NURSE ---
Report received from pm nurse, patient lying in rney quietly, awake and alert to person place and time, patient here s/p fall, states she was using her walker and slipped and fell, patient denies loc, skin is warm dry and pink. Bruise to right forehead radiating down left rastafari, patient denies pain, call light within reach, patient awaiting results. lab here to draw patient. Call light within reach.
--- NOTE | 2025-07-20 07:18 | PC.NURSE ---
Patient does take aspirin daily.
[2025-07-20 07:24] LABS: Basophils # (Auto) 0.0 Thou/mm3 (0.0-0.2); Basophils % (Auto) 0 % (0-2.5); Eosinophils # (Auto) 0.0 Thou/mm3 (0.0-0.5); Eosinophils % (Auto) 0 % (0-10); Hematocrit 34.4 % (36.0-46.0); Hemoglobin 11.3 g/dL (12.0-16.0); Immature Granulocytes Auto 0.02 Thou/mm3 (0.00-0.00); Lymphocytes # (Auto) 0.6 Thou/mm3 (1.0-4.8); Lymphocytes % (Auto) 9 % (10-50); Mean Corpuscular HGB Conc 32.8 g/dl (31.0-37.0); Mean Corpuscular Hemoglobin 33.0 pg (25.0-35.0); Mean Corpuscular Volume 101 fL (80-100); Monocytes # (Auto) 0.5 Thou/mm3 (0.0-0.8); Monocytes % (Auto) 8 % (0-12); Neutrophils # (Auto) 5.6 Thou/mm3 (1.8-7.7); Neutrophils % (Auto) 83 % (37-80); Nucleated Red Blood Cell # 0.00 Thou/mm3 (0.00-0.00); Nucleated Red Blood Cell % 0 /100 WBC (0); Platelet Count 207 Thou/mm3 (140-440); RDW Standard Deviation 47.0 fL (36.4-46.3); Red Blood Count 3.42 Miln/mm3 (4.00-5.20); White Blood Count 6.7 Thou/mm3 (3.6-11.0)
[2025-07-20 08:07] LABS: INR 1.0 (0.9-1.3); Prothrombin Time 10.4 Seconds (9.0-12.2)
[2025-07-20 08:12] LABS: Alanine Aminotransferase 12 U/L (10-49); Albumin, Serum 3.9 gm/dL (3.4-4.8); Albumin/Globulin Ratio 1.6 (1.2-2.2); Anion Gap 11 (7-16); Aspartate Amino Transferase 31 U/L (0-34); BUN/Creatinine Ratio 8 Ratio (12-20); Bilirubin,Total 0.3 mg/dL (0.3-1.2); Blood Urea Nitrogen 7 mg/dL (9-23); Calcium 9.1 mg/dL (8.3-10.6); Calcium (Corrected) 9.2 mg/dL (8.5-10.1); Carbon Dioxide 22.6 mMol/L (20.0-31.0); Chloride 102 mMol/L (98-107); Creatinine (Component) 0.9 mg/dL (0.6-1.3); Globulin 2.5 gm/dL (2.3-3.5); Glucose 100 mg/dL (74-106); Osmolality,Calculated 269 (275-295); Potassium 3.8 mMol/L (3.4-5.1); Sodium 136 mMol/L (136-145); Total Protein 6.4 gm/dL (5.7-8.2); eGFR > 60 See Note
[2025-07-20 08:15] LABS: Troponin I 0.163 ng/mL (0.0-0.045)
[2025-07-20 08:45] LABS: Collection Type, Urine Catheter
[2025-07-20 08:55] LABS: Alkaline Phosphatase 70 U/L (46-116)
[2025-07-20 09:02] LABS: Bilirubin,Urine Negative (Negative); Blood,Urine Trace (Negative); Clarity,Urine Clear (Clear/Hazy); Color,Urine Lt-Yellow (Lt Yel-Yel); Culture Indicated,Urine Not Indicated; Glucose, Urine Negative (Negative); Ketones,Urine Negative (Negative); Leukocyte Esterase,Urine Negative (Negative); Nitrite,Urine Negative (Negative); PH,Urine 5.5 (5.0-7.0); Protein,Urine Trace (Neg - Trace); RBC,Urine 3 /hpf (0-3); Specific Gravity,Urine 1.015 (1.001-1.035); Squamous Epithelial Cell,Urine 1 /hpf (0-5); Urobilinogen,Urine Negative mg/dL (0.0-1.0); WBC,Urine 1 /hpf (0-5)
[2025-07-20 09:39] LABS: B-Type Natriuretic Peptide 343 pg/mL (0-100)
[2025-07-20 10:45] VITALS: BP 176/86; PULSE 73; RESP 18; TEMP 36.6; O2SAT 95
--- NOTE | 2025-07-20 10:56 | PC.NURSE ---
Called patient's daughter, Jazmin, informed her patient discharged to go back to assisted facility. Per Jazmin she will bring clothes for patient and take her back to facility. Dr. Pitts spoke with daughter via telephone regarding plan of care and results.
[2025-07-20 12:28] VITALS: BP 164/68; PULSE 64; RESP 16; O2SAT 95
== END 2025-07-20 12:29 | disposition skilled nursing facility (03) ==
PROVIDERS: Emergency Provider Emergency Medicine; PCP Internal Medicine
DX: S00.83XA Contusion of other part of head, initial encounter (principal); S39.93XA Unspecified injury of pelvis, initial encounter; S19.9XXA Unspecified injury of neck, initial encounter; R79.89 Other specified abnormal findings of blood chemistry; W19.XXXA Unspecified fall, initial encounter; Y92.009 Unspecified place in unspecified non-institutional (private) residence as the place of occurrence of the external cause; Z75.1 Person awaiting admission to adequate facility elsewhere
CPT/HCPCS: 36415; 51701; 70450; 72125; 72170; 80053; 81001; 83880; 84484; 85025; 85610; 93005; 99283